=== PATIENT | female | born 1955 | race Caucasian/White ===

== ENCOUNTER 2024-09-21 10:28 | Day surgery (SDC) | payer OTHER ==
[2024-09-16 10:50] LABS: EOSINOPHILS # (AUTO) 0.1 X10'3 (0-0.9); EOSINOPHILS % (AUTO) 1.3 % (0-6); LYMPHOCYTES # (AUTO) 1.1 X10'3 (1.1-4.8); LYMPHOCYTES % (AUTO) 25.8 % (21-51); MEAN CORPUSCULAR HEMOGLOBIN 30.4 PG (27.0-31.0); MEAN CORPUSCULAR HGB CONC 33.1 g/dL (33.0-36.5); MEAN CORPUSCULAR VOLUME 91.6 FL (78-98); MEAN PLATELET VOLUME 7.6 FL (7.4-10.4); MONOCYTES # (AUTO) 0.3 X10'3 (0-0.9); NEUTROPHILS # (AUTO) 2.9 X10'3 (1.8-7.7); NEUTROPHILS % (AUTO) 64.9 % (42-75); PRE OP HEMATOCRIT 39.3 % (35.0-45.0); PRE OP PLATELET COUNT 235 X10'3 (140-440); PRE OP WHITE BLOOD COUNT 4.4 10'3 (4.8-10.8); RED BLOOD COUNT 4.28 X10'6 (4.20-5.60); RED CELL DISTRIBUTION WIDTH 13.3 % (11.5-14.5)
[2024-09-16 11:20] LABS: ALBUMIN 3.6 G/DL (3.4-5.0); ALBUMIN/GLOBULIN RATIO 1.2 (1.1-1.5); ALKALINE PHOSPHATASE 65 IU/L (46-116); BLOOD UREA NITROGEN 13 MG/DL (7-18); BUN/CREATININE RATIO 16.5 (10.0-20.0); CALCIUM 8.9 MG/DL (8.5-10.1); CHLORIDE 106 MMOL/L (99-107); CREATININE 0.79 MG/DL (0.40-0.90); PRE OP ALT 19 U/L (30-65); PRE OP ANION GAP 5 (8-16); PRE OP AST 22 U/L (10-37); PRE OP BILIRUB, TOTAL 0.4 MG/DL (0.0-1.0); PRE OP GLUCOSE 89 MG/DL (70-104); PRE OP POTASSIUM 4.8 MMOL/L (3.4-5.1); PRE OP SODIUM 143 MMOL/L (135-145); TOTAL CARBON DIOXIDE 31.9 MMOL/L (24-32); TOTAL PROTEIN 6.7 G/DL (6.4-8.2); eGFR 72 ML/MIN
[2024-09-21] VITALS (11 sets, daily range): BP systolic 107–117; BP diastolic 55–69; PULSE 48–84; RESP 14–21; TEMP 99.1; O2SAT 95–100
[~2024-09-21] VITALS: Ht 167.6 cm; Wt 50.8 kg
[2024-09-21] MEDS: clindamycin-Cleocin 900mg/D5W 50 ML IV ONE (05:30)
[~2024-09-21 10:28] MED LIST: GABA-1405 PO
[2024-09-21] MEDS: famotidine 20mg tablet PO ONE (11:17)
[2024-09-21] MEDS: INDOCYANINE GREEN 25 MG/10 ML VIAL IV ONE (11:17)
[2024-09-21] MEDS: ringers solution, lacted 1,000 ML IV SCH (11:18)
[2024-09-21] MEDS ORDERED: BUPIVAcaine 2.5mg/ml inj 50ml vial (contains preservative) ONE (11:51)
[2024-09-21] MEDS ORDERED: meperidine/PF 25mg/ml syringe IV PRN ×3 (11:55)
[2024-09-21] MEDS ORDERED: enalaprilat dihydrate 2.5mg/2ml vial IV PRN (11:55)
[2024-09-21] MEDS ORDERED: morphine 4 MG/ML inj SYRINge IV PRN (11:55)
[2024-09-21] MEDS ORDERED: morphine 2 MG/ML inj. syringe IV PRN (11:55)
[2024-09-21] MEDS ORDERED: proCHLORperazine 10 MG/2 ml inj IV PRN (11:55)
[2024-09-21] MEDS ORDERED: ringers solution, lacted 1,000 ML IV SCH (11:55)
[2024-09-21] MEDS ORDERED: ondansetron/PF 4mg/2ml inj IV PRN (11:55)
[2024-09-21] MEDS ORDERED: labetalol 20mg/4ml (5mg/ml) syringe IV PRN (11:55)
[2024-09-21] MEDS ORDERED: sevoflurane 250ml liquid IH ONE (12:02)
[2024-09-21] MEDS ORDERED: fentaNYL/PF 50MCG/1 ML 2ML syringe ONE (12:03)
[2024-09-21] MEDS ORDERED: midazolam 1 mg/ML 2ml injection ONE (12:03)
[2024-09-21] MEDS ORDERED: LIDOcaine 2% (20mg/ml) 5ml vial ONE (12:04)
[2024-09-21] MEDS ORDERED: propofol inj 20 ML IV ONE (12:04)
[2024-09-21] MEDS ORDERED: rocuronium 10mg/ml inj IV ONE (12:04)
[2024-09-21] MEDS ORDERED: meperidine/PF 25mg/ml syringe ONE (12:04)
[2024-09-21] MEDS ORDERED: ondansetron/PF 4mg/2ml inj ONE (12:20)
[2024-09-21] MEDS: BUPIVAcaine 2.5mg/ml inj 50ml vial (contains preservative) SQ ONE (12:35)
[2024-09-21] MEDS ORDERED: acetaminophen 1,000mg/100ml IV 100 ML IV ONE (14:12)
[2024-09-21] MEDS: oxyCODONE/APAP 5-325mg tablet PO PRN (15:18)
== END 2024-09-21 16:11 | disposition home or self-care (01) ==
LOC: PAS 10:28
PROVIDERS: ATTEND Surgery
DX: K40.91 Unilateral inguinal hernia, without obstruction or gangrene, recurrent (principal); K40.90 Unilateral inguinal hernia, without obstruction or gangrene, not specified as recurrent; K81.1 Chronic cholecystitis; K82.8 Other specified diseases of gallbladder; R94.31 Abnormal electrocardiogram [ECG] [EKG]; G62.9 Polyneuropathy, unspecified; Z79.899 Other long term (current) drug therapy; Z90.710 Acquired absence of both cervix and uterus; Z98.890 Other specified postprocedural states; Z88.0 Allergy status to penicillin; Z80.0 Family history of malignant neoplasm of digestive organs
CPT/HCPCS: 36415; 47563; 49650; 49651; 80053; 82948; 85025; 93005; C1781; J0131; J1100; J2003; J2175; J2250; J2405; J2704; J2710; J3010; J3490; J7030; J7120; S2900; Z7506; Z7508; Z7512; A4215; A4618; A7000